=== PATIENT | male | born 1980 | race Hispanic/Latino ===

== ENCOUNTER 2020-05-10 15:55 | Emergency (ER) | payer OTHER, MEDICARE ==
[~2020-05-10] VITALS: Ht 177.8 cm; Wt 102.0 kg
[2020-05-10] MEDS ORDERED: LORAZEPAM0.5 MG PO (17:03)
[2020-05-10] MEDS ORDERED: FLEXERIL5 MG PO (17:04)
[2020-05-10] MEDS ORDERED: GABAPENTIN100 MG PO (17:04)
[2020-05-10] MEDS ORDERED: COREG6.25 MG PO (17:05)
[2020-05-10] MEDS ORDERED: PROTONIX40 M2 PO (17:05)
[2020-05-10] MEDS ORDERED: ATORVASTATIN CA40 MG PO (17:06)
[2020-05-10] MEDS ORDERED: PLAVIX75 MG PO (17:06)
[2020-05-10] MEDS ORDERED: WARFARIN4 MG PO (17:07)
[2020-05-10 17:08] LABS: HEMATOCRIT 39.1 % (39.0-50.0); HEMOGLOBIN 12.5 g/dl (14.0-18.0); IMMATURE GRANULOCYTES 0.3 % (0.0-5.0); MEAN CORPUSCULAR HGB 25.3 pG CALC (26.0-32.0); NEUT# 5.4 thou/uL (1.82-7.42); RED BLOOD COUNT 4.95 mill/uL (4.70-6.10); RED CELL DISTRI WIDTH 16.5 % (11.5-15.5)
[2020-05-10] MEDS ORDERED: FERR SULFATE325 MG PO (17:10)
[2020-05-10] MEDS ORDERED: ZETIA10 MG PO (17:11)
[2020-05-10] MEDS ORDERED: SUCRALFATE1 GM PO (17:11)
[2020-05-10] MEDS ORDERED: BENADRYL 50MG C50 MG PO (17:12)
[2020-05-10] MEDS ORDERED: ZOFRAN4 M1 PO (17:13)
[2020-05-10] MEDS ORDERED: ALBUTEROL SUL0.083 % IN (17:22)
[2020-05-10] MEDS ORDERED: BROVANA15 MCG/2 M IN (17:22)
[2020-05-10] MEDS ORDERED: HUMIRA40 MG/0.4 SC (17:24)
[2020-05-10] MEDS ORDERED: SYMBICORT1 AE1 IN (17:24)
[2020-05-10] MEDS ORDERED: COMBIVENT RESPIMAT IN (17:25)
[2020-05-10 18:00] LABS: ALBUMIN 4.8 g/dL (3.2-5.0); ALKALINE PHOSPHATASE 92 u/l (38-126); AMYLASE 79 u/l (30-110); ANION GAP 14 (6-22 (CALC)); BILIRUBIN, TOTAL 0.5 mg/dL (0.0-1.4); BUN 16 mg/dL (9-20); BUN/CREATININE RATIO 16 (12-20 (CALC)); CARBON DIOXIDE 24 mmol/l (22-30); CHLORIDE 103 mmol/l (95-108); GFR > 60 ML/MIN (>=60 (CALC)); GFR FOR AFR.AMER. > 60 ML/MIN (>=60 (CALC)); LIPASE 30 u/l (23-300); SGOT/AST 19 u/l (17-59); SODIUM 136 mmol/l (137-146); TOTAL PROTEIN 8.2 g/dL (6.3-8.2)
[2020-05-10 18:10] LABS: ACT PARTIAL THROMBO TIME 26.3 SECONDS (20.0-32.5); D-DIMER 0.31 mg/L (0.19-0.60); INTERNATIONAL NORMALIZED RATIO 1.1 RATIO (0.7-1.3)
[2020-05-10 18:40] VITALS: BP 132/68
== END 2020-05-10 18:45 | disposition home or self-care (01) | DRG 313 ==
LOC: ED 15:55
DX: R07.89 Other chest pain (principal); I11.0 Hypertensive heart disease with heart failure; I50.9 Heart failure, unspecified; G62.9 Polyneuropathy, unspecified; I25.2 Old myocardial infarction; Z85.118 Personal history of other malignant neoplasm of bronchus and lung; Z92.21 Personal history of antineoplastic chemotherapy; Z79.01 Long term (current) use of anticoagulants; Z86.718 Personal history of other venous thrombosis and embolism; Z86.711 Personal history of pulmonary embolism; T45.516A Underdosing of anticoagulants, initial encounter; Z91.128 Patient's intentional underdosing of medication regimen for other reason